=== PATIENT | male | born 1940 | race Caucasian/White ===

== ENCOUNTER 2024-11-24 11:43 | Outpatient (CLI) | payer MEDICARE, BC, SELFPAY | END 2024-11-24 11:44 | disposition home or self-care (01) | LOC: AMB 11-26 17:41 | PROVIDERS: Visit Provider Family Medicine | DX: M54.9 Dorsalgia, unspecified (principal); M54.2 Cervicalgia | CPT/HCPCS: A0425; A0427 ==